=== PATIENT | female | born 1965 ===

== ENCOUNTER 2021-05-05 07:33 | Day surgery (SDC) | payer OTHER ==
[~2021-05-05 07:33] MED LIST: SYNTHROID88 MCG PO
== END 2021-05-05 17:37 | disposition home or self-care (01) ==
LOC: CIR.AMB 07:33
PROVIDERS: ATTEND Student in an Organized Health Care Education/Training Program
DX: N84.0 Polyp of corpus uteri (principal); Z20.822 Contact with and (suspected) exposure to COVID-19